=== PATIENT | female | born 1940 | race Caucasian/White ===

== ENCOUNTER 2017-04-03 12:48 | Emergency (ER) | payer MEDICARE, OTHER ==
[~2017-04-03] VITALS: Ht 152.4 cm; Wt 50.8 kg
[2017-04-03] MEDS ORDERED: OMEGA 3 FISH O1 EACH PO (13:21)
[2017-04-03] MEDS ORDERED: MULTIPLE VITAM1 EAC2 PO (13:21)
[2017-04-03] MEDS ORDERED: ASPIR-LOW81 MG PO (13:21)
[2017-04-03] MEDS ORDERED: LOMOTIL TABLET1 EACH PO (16:48)
[2017-04-03] MEDS ORDERED: ANUSOL-HC25 MG PR (16:48)
[2017-04-03] MEDS ORDERED: MACRODANTIN100 MG PO (16:48)
== END 2017-04-03 17:10 | disposition home or self-care (01) ==
LOC: ED 12:48
DX: K62.89 Other specified diseases of anus and rectum (principal); N30.00 Acute cystitis without hematuria; E78.5 Hyperlipidemia, unspecified; Z79.82 Long term (current) use of aspirin; Z79.899 Other long term (current) drug therapy
CPT/HCPCS: 80053; 81001; 85025; 87088; 99283

== ENCOUNTER 2017-04-05 14:17 | Observation (INO) | payer MEDICARE, OTHER ==
[~2017-04-05] VITALS: Ht 152.4 cm; Wt 50.9 kg
[~2017-04-05 14:17] MED LIST: ANUSOL-HC25 MG PR; ASPIR-LOW81 MG PO; LOMOTIL TABLET1 EACH PO; MACRODANTIN100 MG PO; MULTIPLE VITAM1 EAC2 PO; OMEGA 3 FISH O1 EACH PO
--- NOTE | 2017-04-05 18:10 | NUR ---
Patient arrives via stretcher from ER. Patient is alert, oriented. Denies pain. Upon moving into bed patient cries out in pain, states "oh my rectum hurts so much when I try to sit." Patient repositioned in bed for comfort. Patient oriented to bed controls and call light. Assessment complete, benign apart from acute constipation. Patient states she has not had a normal bowel movement since 03/22/17. Patient denies nausea, states she has been eating normally. Started IVF, patient given mineral oil enema.
--- NOTE | 2017-04-05 19:18 | NUR ---
PATIENT UNABLE TO HOLD ENEMA AT ALL. CHANGED ATTENDS AND GOWN AND ASSISTED PATIENT TO BEDSIDE COMMODE. PATIENT HAS NO BOWEL MOVEMENT. PATIENT STATES "IT HURTS SO MUCH I AM AFRAID TO PUSH AT ALL" PATIENT BACK TO BED, CALL LIGHT IN REACH. PT SIPPING ON TEA. REPORT GIVEN TO MACHINE SILK SCREEN PRINTER.
--- NOTE | 2017-04-05 20:08 | NUR ---
PT ASSESSMENT COMPLETE. PT RESTING IN BED COMFORTABLY. PT DENIES ANY PAIN, N/V, SOB. PT ON ROOM AIR. IV FLUIDS INFUSING WITHOUT DIFFICULTY. PT AMBULATES TO BEDSIDE COMMODE INDEPENDENTLY. CALL LIGHT WITHIN REACH. PT DENIES ANY FURTHER NEEDS AT THIS TIME.
--- NOTE | 2017-04-05 21:24 | NUR ---
LOWER DENTURE SOAKED IN THE CONTAINER.
--- NOTE | 2017-04-05 22:50 | NUR ---
PT UP TO BEDSIDE COMMODE INDEPENDENTLY. VOIDING WITHOUT DIFFICULTY. IV FLUIDS INFUSING WITHOUT DIFFICULTY. CALL LIGHT WITHIN REACH. PT DENIES ANY FURTHER NEEDS AT THIS TIME.
--- NOTE | 2017-04-06 01:15 | NUR ---
PT RESTING QUIETLY IN BED, AWAKE. IV FLUIDS INFUSING WITHOUT DIFFICULTY. PT VOIDING WELL IN BEDSIDE COMMODE, PT HAS NOT YET HAD A BM SINCE ENEMA GIVEN ON DAYSHIFT. PT NPO FOR POSSIBLE AM SURGERY. CALL LIGHT WITHIN REACH. PT DENIES ANY NEEDS AT THIS TIME.
--- NOTE | 2017-04-06 01:49 | NUR ---
PT UP TO BEDSIDE COMMODE, VOIDING WITHOUT DIFFICULTY. PT C/O RECTAL PAIN WITH "PUSHING", STATES "I FEEL THE NEED TO PUSH BUT NOTHING COMES OUT", PT DENIED OFFER OF PAIN MEDICATION, WARM PACK GIVEN FOR COMFORT. PT NOW BACK IN BED RESTING QUIETLY, DENIES ANY NEED AT THIS TIME. PT STATES SHE WILL LET STAFF KNOW IF SHE WANTS PAIN MEDICATION. CALL LIGHT WITHIN REACH.
--- NOTE | 2017-04-06 04:18 | NUR ---
PT SLEEPING, RR EVEN AND UNLABORED. PT APPEARS COMFORTABLE AT THIS TIME. IV FLUIDS INFUSING WITHOUT DIFFICULTY. CALL LIGHT WITHIN REACH.
--- NOTE | 2017-04-06 05:24 | NUR ---
PT HAD AN UNEVENTFUL NIGHT. PT INDEPENDENT TO BEDSIDE COMMODE. IV FLUIDS INFUSING WITHOUT DIFFICULTY. VOIDING WELL. UNABLE TO HAVE BM THIS SHIFT. NPO FOR POSSIBLE DISIMPACTING PROCEDURE. ROOM AIR. PAIN WITH SITTING OR ATTEMPTING BM, WARM PACK GIVEN, PT DENIED ANY NEED FOR PAIN MEDICATION THIS SHIFT.
--- NOTE | 2017-04-06 07:31 | NUR ---
REPORT RECEIVED FROM SAMPSON MUÑOZ. PT AWAKE WITH SON IN ROOM. PT ASKING FOR COFFEE AND FOOD. INFORMED HER THAT DR WANTS HER ON CLEARS RIGHT NOW, WILL GIVE COFFEE.
--- NOTE | 2017-04-06 08:50 | NUR ---
PATIENT LAYING IN BED WATCHING TV. SON IN ROOM. PATIENT WASHED HANDS AND FACE. REFUSE ORAL CARE. DENTURES OUT SHE STATES SHE RINSED HER MOUTH OUT. WOULD LIKE TO SHOWER AFTER SHE'S DONE WITH HER MIRALAX. CALL BUTTON IN REACH. NO OTHER NEEDS AT THIS TIME.
--- NOTE | 2017-04-06 09:49 | NUR ---
PATIENT SITTING UP IN BED WATCHING TV. SON IN ROOM. FRESH ICE WATER GIVEN. NO OTHER NEEDS AT THIS TIME. CALL BUTTON IN REACH.
--- NOTE | 2017-04-06 12:11 | NUR ---
STAND BY ASSIST PATIENT BACK TO BED. CALL BUTTON IN REACH. NO OTHER NEEDS AT THIS TIME.
--- NOTE | 2017-04-06 13:32 | NUR ---
PT UP TO THE RESTROOM FOR ANOTHER BOUT OF DIAHRREA. PT DENIES CONCERNS AND IS HAPPY TO HAVE IT OUT. IVF RUNNING WNL. PT HAS DRANK ALL OF ONE BOTTLE AND 1\3 OF THE 2ND BOTTLE MIRALAX.
--- NOTE | 2017-04-06 13:46 | NUR ---
PATIENT SITTING UP IN BED WATCHING TV. CALL BUTTON IN REACH. FRESH ICE WATER GIVEN. NO OTHER NEEDS AT THIS TIME.
--- NOTE | 2017-04-06 15:25 | NUR ---
PT PICC DRESSING CDI. PT DENIES PAIN. PRESSURE DRESSING IN PLACE. PT ASKING TO GO HOME. JOSHUA WORKING ON IT.
--- NOTE | 2017-04-06 16:50 | NUR ---
ASSITED PATIENT BACK TO BED. PATIENT STATES THAT HER BM IS STARTING TO LOOK MORE CLEAR. CALL BUTTON IN REACH NO OTHER NEEDS AT THIS TIME.
--- NOTE | 2017-04-06 18:12 | NUR ---
PATIENT SITTING UP IN BED WATCHING TV. FRESH ICE WATER GIVEN. NO OTHER NEEDS AT THIS TIME. CALL BUTTON IN REACH.
--- NOTE | 2017-04-06 20:47 | NUR ---
PT ASSESSMENT COMPLETE. PT RESTING IN BED WATCHING TV. PT ALERT AND ORIENTED, IN GOOD SPIRITS THIS EVENING. PT DENIES ANY PAIN, PT STATES SHE "FEELS SO MUCH BETTER THAN YESTERDAY". IV FLUIDS INFUSING WITHOUT DIFFICULTY. PT DENIES ANY N/V, TOELRATING CLEAR LIQUID DIET WELL. PT DENIES ANY CHEST PAIN, DIZZINESS, SOB. PT ON ROOM AIR. HS MEDS GIVEN. CALL LIGHT WITHIN REACH. PT DENIES ANY FURTHER NEEDS AT THIS TIME.
--- NOTE | 2017-04-06 20:48 | NUR ---
GOT PATIENT BROTH AND JELLO BECAUSE NO DINNER TRAY WAS BROUGHT UP. UPDATED WHITEBOARD. TOLD HER TO CALL IF SHE NEEDED MORE BROTH OR JELLO.
--- NOTE | 2017-04-07 00:05 | NUR ---
PATIENT IN BED ASLEEP
--- NOTE | 2017-04-07 00:15 | NUR ---
PT SLEEPING, RR EVEN AND UNLABORED. PT APPEARS COMFORTABLE AT THIS TIME. IV FLUIDS INFUSING WITHOUT DIFFICULTY. CALL LIGHT WITHIN REACH.
--- NOTE | 2017-04-07 03:31 | NUR ---
PT SLEEPING, RR EVEN AND UNLABORED. PT APPEARS COMFORTABLE AT THIS TIME. IV FLUIDS INFUSING WITHOUT DIFFICULTY. CALL LIGHT WITHIN REACH.
--- NOTE | 2017-04-07 04:56 | NUR ---
PT HAD AN UNEVENTFUL NIGHT, SLEPT MOST OF NIGHT. PT DENIED ANY PAIN, N/V. PT HAD MULTIPLE BM THIS SHIFT. IV FLUIDS INFUSING WITHOUT DIFFICULTY. PT VOIDING WELL. PT AMBULATES WITH SBA.
--- NOTE | 2017-04-07 08:45 | NUR ---
ADMINISTERD PT MEDS. PT SL FOR SHOWER AND SUPPLIES GIVEN. PT INDEPENDENT AND INSTRUCTED TO USE CALL LIGHT IN SHOWER IF ANY NEEDS ARISE. PT WOULD LIKE TO GO HOME TODAY.
--- NOTE | 2017-04-07 08:50 | NUR ---
PATIENT UP TO SHOWER BY RN.
--- NOTE | 2017-04-07 09:47 | NUR ---
ASSISTED PATIENT TO CHAIR WITH FEET ELEVATED. CALL BUTTON IN REACH. FRESH ICE WATER GIVEN. LINENS CHANGED.
--- NOTE | 2017-04-07 11:23 | NUR ---
PT UP TO THE RESTROOM. JUST UNPLUGGING IV POLE, PT OTHERWISE INDEPENDENT IN ROOM.
[2017-04-07] MEDS ORDERED: ATORVASTATIN CA20 MG PO (12:41)
[2017-04-07] MEDS ORDERED: CIPRO500 MG PO (12:44)
--- NOTE | 2017-04-07 12:55 | NUR ---
Pharmacy in to talk to patient.
[2017-04-07] MEDS ORDERED: LAXATIVE5 M1 PO (12:59)
[2017-04-07] MEDS ORDERED: ARTHRITIS PAIN650 MG PO (13:01)
[2017-04-07] MEDS ORDERED: EYE DROPS15 M1 OPTH (13:02)
--- NOTE | 2017-04-07 13:05 | NUR ---
MED REC COMPLETE WITH PATIENT INTERVIEW AND PATIENT'S OWN HANDWRITTEN MEDICATION LIST. PATIENT WAS PRESCRIBED CIPRO AND NITROFURANTOIN PRIOR TO ARRIVING AT THE HOSPITAL, BUT BELIEVES SHE WAS TOLD TO STOP TAKING THOSE UPON ADMISSION.
--- NOTE | 2017-04-07 13:33 | NUR ---
PATIENT RESTING IN BED WATCHING TV. FRESH ICEWATER GIVEN. CALL BUTTON IN REACH. NO OTHER NEEDS AT THIS TIME.
--- NOTE | 2017-04-07 14:14 | CONS ---
[facility] [address], [place] [address] Signed DATE OF CONSULTATION: 04/06/17 REFERRING PHYSICIANS: Dr. Steven Hayes. CHIEF COMPLAINT: Rectal pain and constipation. HISTORY OF PRESENT ILLNESS Zachery is a 76-year-old female from [place]. Within the last 3 years, she moved to the [facility] to live with her son and his family. She is now a . Her daughter lives down near [place]. She does not want to really go to the doctors. She said the last month though she has had a lot of trouble with pain around the right rectum and anus and has more liquid like stool coming out. She said she bears down it makes it worse. She finally decided to come over to [facility] Emergency room. Apparently, she has been here twice. It sounds like they tried to do an endoscopy and she was not very cooperative with that because of pain. She ended up with an phosphor soda enema and a mineral oil enema; really with no results. CT scan of pelvis had been performed and it showed the stool in the rectum. For some reason, the ER physician felt he could reach that with his index finger. There were unremarkable large and small bowel in the pelvis. 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 Consequently, I was asked to admit her as a general surgeon icer air conditioning. We late last evening hydrated her overnight. She has had no BM overnight. PAST MEDICAL HISTORY: Hyperlipidemia. PAST SURGICAL HISTORY: Remote colonoscopy. SOCIAL HISTORY She does not smoke or drink. She is now a . She lives with her son and his and 2 children. She also has a daughter down near [place]. Her son is Ruel at [phone]; they prefer the [facility]. Their primary care provider is Félix Mantilla; he is a physician's orthodontic technician assistant. FAMILY HISTORY Apparently mom and dad and a brother all had cancer; she is not sure what type. REVIEW OF SYSTEMS Had 10 systems reviewed, and she mentioned the colonoscopy. ALLERGIES: None. MEDICATIONS Lomotil, Anusol, Macrodantin, Multivitamin, Meadview-3, and Aspirin. Electronically Signed By: KANNAN BURNETT MD 04/07/17 1414 PATIENT NAME: ZACHERY PETERS CONSULTATION DATE OF : 40 PHYSICIAN: KANNAN BURNETT MD REPORT #: [id number] REPORT IS CONFIDENTIAL AND NOT TO BE RELEASED WITHOUT AUTHORIZATION [facility] [address], [place] [address] Signed PHYSICAL EXAMINATION VITAL SIGNS: Her blood pressure is 130/56, heart rate 69, respiratory rate 14 and temperature is 97.6 degrees, 97% on room air. She is 5 feet tall at 50 kg. GENERAL: Zachery is a 76-year-old female, lying supine in her hospital bed. She is in no distress. LUNGS: Clear to auscultation bilaterally. HEART: Regular rate and rhythm. ABDOMEN: Soft, flat, nontender. With our nurse in the room and plenty of lubrication, we looked at the rectum and she has 2 small indurated external hemorrhoids. She has moderate sphincter tone. She has brown stool around the anus. With the index finger, I was able to feel copious amounts of soft stool in the rectum but then she had a large much more formed stool ball; it took a few minutes and we removed the stool ball with her index finger. She was worried about pain but in reality she did very well. I am not sure why so much pain. I looked carefully, I really could not see an anal fissure, although the lighting of the room, so it is not the best. LABORATORY DATA Her white blood count 10.6, her hemoglobin is 12. RADIOGRAPHIC STUDIES CT scan of pelvis shows stool in the rectum; in the large and small bowel are fine. 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 ASSESSMENT AND PLAN Zachery is a 76-year-old female, who had her upper teeth removed little over a month ago and so she changed her diet and I think maybe that is part of why she has had some trouble with her stool. She said she did not really take pain medications after her teeth were removed, although I see Lomotil listed in her medications. Nevertheless, she does have stool impaction of the rectum leading to her constipation. With the help of the nurse, we did a digit a l disimpaction and I think that is going to work out fine. We will go ahead and give her Gatorade today with MiraLAX and I think we will be able to clear that rectum out just fine; and once we get this sticky stool out of her, she will have to be on a fiber product to help bulk up the stool. I have reviewed this with the patient. She has expressed understanding and agrees above plan. She should also strongly consider a colonoscopy while here in the hospital or very shortly thereafter. Kannan Burnett MD AB/[place] Electronically Signed By: KANNAN BURNETT MD 04/07/17 1414 PATIENT NAME: ZACHERY PETERS CONSULTATION DATE OF : 40 PHYSICIAN: KANNAN BURNETT MD REPORT #: [id number] REPORT IS CONFIDENTIAL AND NOT TO BE RELEASED WITHOUT AUTHORIZATION [address] [place], [place] [address] Signed /[id number] cc: Félix Mantilla PA-C Electronically Signed By: KANNAN BURNETT MD 04/07/17 1414 PATIENT NAME: ZACHERY PETERS CONSULTATION DATE OF : 40 PHYSICIAN: KANNAN BURNETT MD REPORT #: [id number] REPORT IS CONFIDENTIAL AND NOT TO BE RELEASED WITHOUT AUTHORIZATION
[2017-04-07] MEDS ORDERED: BENEFIBER1 EAC1 PO (14:30)
--- NOTE | 2017-04-07 14:56 | NUR ---
PT EDUCATION GIVEN. SPENT SEVERAL MINUTES GOING OVER FOOD CHOICES FOR POOR DENTATION AND KEEPING STOOL SOFT. WROTE OUT OPTIONS ON PAPER. PT VERBALIZED UNDERSTANDING. REMOVED IV WNL. PT VERY APPRECIATIVE OF STAFF AND HAPPY WITH STAY. PT DRESSED AND WAITING FOR SON.
--- NOTE | 2017-04-08 17:49 | DS ---
[facility] [address], [place] [address] Signed DATE OF DISCHARGE: 04/07/17 FINAL DIAGNOSIS: Rectal impaction with constipation. PROCEDURES CT scan of pelvis. Digital rectal disimpaction. HISTORY OF PRESENT ILLNESS Zachery is a 76-year-ol d lady from [place] who now lives with her son and his family. She is now windowed. She was having rectal pain for about a month with liquid stool coming out. She said if she pushed it causes severe pain. She finally came to the emergency room for evaluation. She told me that she had her upper teeth removed and she changed her diet. She thinks maybe that led to the trouble. In the ER, she received Phospho-Soda enema and mineral enema without success. White count was borderline high. She therefore had a CT scan of pelvis and there was certainly stool in the rectum, but the small and large bowel seem to be unremarkable. 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 She seemed to have a lot of pain around the anus and so the ER doctor called me as a general surgeon on-call to consider taking her to the OR under anesthesia. HOSPITAL COURSE Zachery was admitted as above and hydrated overnight. Next morning I went in the room with the nurse and we spent about 3 minutes, disimpacting the large taryn like stool ball from her rectum. Afterwards, we gave her clear liquid diet with Gatorade and MiraLax and she has had over 15 bowel movements and she is quite elated. She said she feels awesome, all the stool is out and there is no pain. She looks much better and she would like to go home. DISCHARGE PLANS AND MEDICATIONS Zachery will be discharged home with no new prescriptions. She can follow a regular diet. I am going to write down Benefiber and she needs to take that twice a day so that she can have formed stool rather than in this thin pasty stool. Also, she is in need of a colonoscopy and I will have her back in the office in a week or 2 to review that and we will get that scheduled for her as an outpatient. In the meantime, she is welcome to follow up with her primary care provider as usual. She has expressed understanding and agreed to the above plan. Electronically Signed By: KANNAN BURNETT MD 04/08/17 1749 PATIENT NAME: ZACHERY PETERS DISCHARGE SUMMARY DATE OF : 40 PHYSICIAN: KANNAN BURNETT MD REPORT #: [id number] REPORT IS CONFIDENTIAL AND NOT TO BE RELEASED WITHOUT AUTHORIZATION [facility] [address], [place] [address] Signed BELKYS Garcia/Alma /[id number] cc: Félix Mantilla MD Electronically Signed By: KANNAN BURNETT MD 04/08/17 1749 PATIENT NAME: ZACHERY PETERS DISCHARGE SUMMARY DATE OF : 40 PHYSICIAN: KANNAN BURNETT MD REPORT #: [id number] REPORT IS CONFIDENTIAL AND NOT TO BE RELEASED WITHOUT AUTHORIZATION
== END 2017-04-07 15:16 | disposition home or self-care (01) ==
LOC: ED 14:17 → MS 16:41
PROVIDERS: ADMIT Colon & Rectal Surgery
DX: K56.41 Fecal impaction (principal); E78.5 Hyperlipidemia, unspecified; N83.9 Noninflammatory disorder of ovary, fallopian tube and broad ligament, unspecified; Z79.82 Long term (current) use of aspirin; Z79.899 Other long term (current) drug therapy
CPT/HCPCS: 72193; 81001; 85025; 94760; 96372; 99285; G0378; J1644; J7040; J7042; J7120; Q9967